=== PATIENT | male | born 1945 | race Caucasian/White ===

== ENCOUNTER 2017-04-19 19:40 | Emergency (ER) | payer OTHER ==
[~2017-04-19] VITALS: Ht 167.6 cm; Wt 71.4 kg
[~2017-04-19 19:40] MED LIST: ACETAMINOPHEN500 MG PO; ASCORBIC ACID500 M3 PO; CARDIZEM CD,CA120 MG PO; COUMADIN5 MG PO; Ecotrin PO; LANOXIN,DIGI0.125 MG PO; LASIX20 MG PO; LEVOFLOXACIN750 MG PO; LEVOTHYROXINE88 MCG PO; Levothroid,Synthroid PO; MOBIC15 MG PO; RED YEAST RICE600 MG PO; ST. JOSEPH ASPI81 MG PO; ZOFRAN4 MG PO
[2017-04-19 19:44] VITALS: BP 121/74
[2017-04-19] MEDS ORDERED: KEFLEX500 MG PO (19:45)
== END 2017-04-19 19:57 | disposition home or self-care (01) ==
LOC: EME 19:40
DX: L03.115 Cellulitis of right lower limb (principal); W57.XXXA Bitten or stung by nonvenomous insect and other nonvenomous arthropods, initial encounter; Z88.0 Allergy status to penicillin; Z88.6 Allergy status to analgesic agent
CPT/HCPCS: 99281; 99282

== ENCOUNTER 2017-04-29 08:59 | Emergency (ER) | payer OTHER ==
[~2017-04-29] VITALS: Ht 167.6 cm; Wt 70.0 kg
[~2017-04-29 08:59] MED LIST changes: +KEFLEX500 MG PO
[2017-04-29] MEDS ORDERED: PREDNISONE50 MG PO (10:28)
[2017-04-29] MEDS ORDERED: NORCO 5/3251 TABLET PO (10:31)
[2017-04-29 10:38] VITALS: BP 122/80
== END 2017-04-29 10:40 | disposition home or self-care (01) ==
LOC: EME 08:59
DX: M54.5 Low back pain (principal); E03.9 Hypothyroidism, unspecified; I48.91 Unspecified atrial fibrillation
CPT/HCPCS: 72100; 99281; 99283

== ENCOUNTER 2017-05-18 15:36 | Emergency (ER) | payer OTHER ==
[~2017-05-18] VITALS: Ht 167.6 cm; Wt 69.9 kg
[~2017-05-18 15:36] MED LIST changes: +NORCO 5/3251 TABLET PO; +PREDNISONE50 MG PO
[2017-05-18] MEDS ORDERED: FLEXERIL5 MG PO (17:38)
[2017-05-18] MEDS ORDERED: MOTRIN800 MG PO (17:38)
[2017-05-18 17:50] VITALS: BP 131/69
== END 2017-05-18 17:55 | disposition home or self-care (01) ==
LOC: EME 15:36
DX: M54.5 Low back pain (principal); I48.91 Unspecified atrial fibrillation; E03.9 Hypothyroidism, unspecified; Z95.0 Presence of cardiac pacemaker
CPT/HCPCS: 72100; 99281; 99284

== ENCOUNTER 2017-09-20 16:43 | Emergency (ER) | payer OTHER ==
[~2017-09-20] VITALS: Ht 168.9 cm; Wt 70.8 kg
[~2017-09-20 16:43] MED LIST changes: +FLEXERIL5 MG PO; +MOTRIN800 MG PO
[2017-09-20] MEDS ORDERED: ZITHROMAX250 MG PO (18:24)
[2017-09-20] MEDS ORDERED: TESSALON PERLE100 MG PO (18:24)
[2017-09-20] MEDS ORDERED: FLONASE16 G1 BOTH NARES (18:24)
[2017-09-20] MEDS ORDERED: VENTOLIN HFA18 GM IH (18:24)
[2017-09-20 18:42] VITALS: BP 124/62
== END 2017-09-20 18:43 | disposition home or self-care (01) ==
LOC: EME 16:43
DX: J20.9 Acute bronchitis, unspecified (principal); J32.9 Chronic sinusitis, unspecified; J30.9 Allergic rhinitis, unspecified; I48.0 Paroxysmal atrial fibrillation; Z95.2 Presence of prosthetic heart valve; Z88.0 Allergy status to penicillin; Z88.5 Allergy status to narcotic agent
CPT/HCPCS: 94640; 99281; 99283; J7512

== ENCOUNTER 2017-09-26 23:59 | Emergency (ER) | payer OTHER ==
[~2017-09-26] VITALS: Ht 170.2 cm; Wt 70.8 kg
[~2017-09-26 23:59] MED LIST changes: +FLONASE16 G1 BOTH NARES; +TESSALON PERLE100 MG PO; +VENTOLIN HFA18 GM IH; +ZITHROMAX250 MG PO
[2017-09-27 00:02] VITALS: BP 128/85
[2017-09-27] MEDS ORDERED: BACTRIM,SEPT1 TABLET PO (00:38)
[2017-09-27] MEDS ORDERED: KEFLEX500 MG PO (00:38)
== END 2017-09-27 01:06 | disposition home or self-care (01) ==
LOC: EME 23:59
DX: S80.862A Insect bite (nonvenomous), left lower leg, initial encounter (principal); L03.116 Cellulitis of left lower limb; W57.XXXA Bitten or stung by nonvenomous insect and other nonvenomous arthropods, initial encounter; Z79.82 Long term (current) use of aspirin; Z88.0 Allergy status to penicillin; Z88.1 Allergy status to other antibiotic agents; Z88.5 Allergy status to narcotic agent
CPT/HCPCS: 99281; 99284

== ENCOUNTER 2017-10-23 10:28 | Emergency (ER) | payer OTHER ==
[~2017-10-23] VITALS: Ht 167.6 cm; Wt 70.4 kg
[~2017-10-23 10:28] MED LIST changes: +BACTRIM,SEPT1 TABLET PO
[2017-10-23 10:31] VITALS: BP 123/71
== END 2017-10-23 11:30 | disposition left against medical advice (07) ==
LOC: EME 10:28
DX: R05 Cough (principal); Z53.21 Procedure and treatment not carried out due to patient leaving prior to being seen by health care provider
CPT/HCPCS: 99281

== ENCOUNTER 2018-01-18 06:03 | Emergency (ER) | payer OTHER ==
[~2018-01-18] VITALS: Ht 167.6 cm; Wt 67.5 kg
[2018-01-18 06:55] LABS: HEMATOCRIT 42.6 % (38.0-50.0); MCH 31.4 PG (29.0-34.0); MCHC 35.2 G/DL (30.0-36.0); MCV 89.3 FL (86-99); PLATELET COUNT 155 K/uL (156-360); RBC DIS.WIDTH-CV 13.2 % (11.8-14.6); RBC DIS.WIDTH-SD 43.7 % (39-53); RED BLOOD COUNT 4.77 M/uL (4.00-5.50); WHITE BLOOD COUNT 7.5 K/uL (4.1-10.2)
[2018-01-18 07:22] LABS: CHLORIDE 104 MEQ/L (99-109); GFR ESTIMATE (CALCULATED) > 59 mL/min/ (58.99-99999); GLUCOSE 99 mg/dL (70-99); SODIUM 135 MEQ/L (136-147); UREA NITROGEN (BUN) 17 mg/dL (9-23)
[2018-01-18] MEDS ORDERED: PEPCID20 MG PO (07:38)
[2018-01-18 08:27] VITALS: BP 110/62
== END 2018-01-18 08:29 | disposition home or self-care (01) ==
LOC: EME 06:03
PROVIDERS: Physician Assistant
DX: K21.9 Gastro-esophageal reflux disease without esophagitis (principal); R53.1 Weakness; R25.2 Cramp and spasm; E03.9 Hypothyroidism, unspecified; Z88.0 Allergy status to penicillin; Z95.2 Presence of prosthetic heart valve; Z79.82 Long term (current) use of aspirin
CPT/HCPCS: 71046; 80048; 85027; 99281; 99284